=== PATIENT | male | born 1945 | race Caucasian/White ===

== ENCOUNTER 2020-10-15 05:49 | Day surgery (SDC) | payer MEDICARE, OTHER ==
[2020-10-08 16:08] LABS: BASOPHILS # (AUTO) 0.1 X10'3 (0-0.2); BASOPHILS % (AUTO) 1.4 % (0-1); EOSINOPHILS # (AUTO) 0.2 X10'3 (0-0.9); EOSINOPHILS % (AUTO) 3.1 % (0-6); LYMPHOCYTES # (AUTO) 2.4 X10'3 (1.1-4.8); LYMPHOCYTES % (AUTO) 33.7 % (21-51); MEAN CORPUSCULAR HEMOGLOBIN 30.1 PG (27.0-31.0); MEAN CORPUSCULAR HGB CONC 33.5 g/dL (33.0-36.5); MEAN CORPUSCULAR VOLUME 89.9 FL (78-98); MEAN PLATELET VOLUME 9.5 FL (7.4-10.4); MONOCYTES # (AUTO) 0.7 X10'3 (0-0.9); MONOCYTES % (AUTO) 9.9 % (2-12); NEUTROPHILS # (AUTO) 3.7 X10'3 (1.8-7.7); NEUTROPHILS % (AUTO) 51.9 % (42-75); PRE OP HEMATOCRIT 47.9 % (42.0-52.0); PRE OP PLATELET COUNT 296 X10'3 (140-440); RED BLOOD COUNT 5.33 X10'6 (4.70-6.10); RED CELL DISTRIBUTION WIDTH 15.7 % (11.5-14.5)
[2020-10-08 16:16] LABS: PRE OP INR 1.1 INR; PRE OP PROTIME 10.9 SECONDS (9.0-12.0)
[2020-10-08 16:18] LABS: ALBUMIN 4.1 G/DL (3.4-5.0); ALBUMIN/GLOBULIN RATIO 1.4 (1.1-1.5); ALKALINE PHOSPHATASE 98 IU/L (46-116); BLOOD UREA NITROGEN 19 MG/DL (7-18); BUN/CREATININE RATIO 20.9 (5.4-32.0); CALCIUM 8.6 MG/DL (8.5-10.1); CHLORIDE 107 MMOL/L (99-107); CREATININE 0.91 MG/DL (0.60-1.10); PRE OP ALT 37 U/L (30-65); PRE OP ANION GAP 11 (8-16); PRE OP AST 22 U/L (10-37); PRE OP BILIRUB, TOTAL 0.4 MG/DL (0.0-1.0); PRE OP GLUCOSE 128 MG/DL (70-104); PRE OP SODIUM 142 MMOL/L (135-145); TOTAL CARBON DIOXIDE 24.2 MMOL/L (24-32); TOTAL PROTEIN 7.1 G/DL (6.4-8.2); eGFR 82 ML/MIN
[2020-10-08 16:22] LABS: PRE OP POTASSIUM 3.3 MMOL/L (3.4-5.1)
[~2020-10-15] VITALS: Ht 170.2 cm; Wt 72.7 kg
[2020-10-15] VITALS (8 sets, daily range): BP systolic 139–158; BP diastolic 77–90
[~2020-10-15 05:49] MED LIST: AMLO2.5T2 PO; ASCO500C17 PO; ATOR-2 PO; BIOT5000 PO; CHLO25TA10 PO; CYAN250010 PO; DICL50TA8 PO; GABA600T13 PO; HYDR-3973 PO; MAGN400C PO; METH-797 PO; POTASSIUM PO; ZINC50TA67 PO; diazepam 5mg tablet PO PRN; famotidine 20mg tablet PO ONE; oxymetazoline 15 ML nasal spray NS PRN; ringers solution, lacted 1,000 ML IV SCH
[2020-10-15] MEDS ORDERED: ceFAZolin 1000mg inj ONE (06:47)
[2020-10-15] MEDS ORDERED: cocaine 4% topical solution 4ml bottle ONE (06:47)
[2020-10-15] MEDS ORDERED: mupirocin 2% ointment 22GM ONE (06:47)
[2020-10-15] MEDS ORDERED: LIDOcaine 1% W/epiNEPHrine 1:100,000 20ml vial ONE (06:47)
[2020-10-15] MEDS ORDERED: oxymetazoline 15 ML nasal spray NS ONE (06:48)
[2020-10-15 07:11] LABS: ISTAT CREATININE 1.1 mg/dL (0.8-1.3); ISTAT HGB 17.3 g/dl (14.0-18.0); ISTAT IONIZED CALCIUM 1.21 mmol/L (1.03-1.32); ISTAT K 4.2 mmol/L (3.5-5.1); POC BUN/CREATININE RATIO 19.1 (5.4-32.0)
[2020-10-15] MEDS ORDERED: hydrALAZINE 20mg/ml inj. IV ONE (08:05)
[2020-10-15] MEDS ORDERED: sevoflurane 250ml liquid IH ONE (08:05)
[2020-10-15] MEDS ORDERED: fentaNYL/PF 50MCG/1 ML 2ML syringe ONE (08:06)
[2020-10-15] MEDS ORDERED: LIDOcaine 2% (20mg/ml) 5ml vial ONE (08:06)
[2020-10-15] MEDS ORDERED: ondansetron/PF 4mg/2ml inj ONE (08:06)
[2020-10-15] MEDS ORDERED: midazolam 1 mg/ML 2ml injection ONE (08:06)
[2020-10-15] MEDS ORDERED: propofol inj 20 ML IV ONE (08:07)
[2020-10-15] MEDS ORDERED: dexamethasone sod phosphate 4mg/ml inj. ONE (08:07)
[2020-10-15] MEDS ORDERED: ePHEDrine 50MG/ML INJ. ONE (08:37)
[2020-10-15] MEDS ORDERED: ondansetron/PF 4mg/2ml inj IV PRN (08:45)
[2020-10-15] MEDS ORDERED: fentaNYL/PF 50MCG/1 ML 2ML syringe IV PRN ×2 (08:45)
[2020-10-15] MEDS ORDERED: morphine 4 MG/ML inj SYRINge IV PRN (08:45)
[2020-10-15] MEDS ORDERED: ringers solution, lacted 1,000 ML IV SCH (08:45)
[2020-10-15] MEDS ORDERED: enalaprilat dihydrate 2.5mg/2ml vial IV PRN (08:45)
[2020-10-15] MEDS ORDERED: hydrALAZINE 20mg/ml inj. IV PRN (08:45)
[2020-10-15] MEDS ORDERED: morphine 2 MG/ML inj. syringe IV PRN (08:45)
[2020-10-15] MEDS ORDERED: salt irrigation nasal spray 45 ML SPRAY NS PRN (10:10)
[2020-10-15] MEDS ORDERED: HYDROcodone/acetaminophen 10/325mg tab PO ONE (10:15)
== END 2020-10-15 10:45 | disposition home or self-care (01) ==
LOC: PAS 05:49
PROVIDERS: ATTEND Otolaryngology
DX: J34.2 Deviated nasal septum (principal); M95.0 Acquired deformity of nose; J34.3 Hypertrophy of nasal turbinates; J34.89 Other specified disorders of nose and nasal sinuses; F17.210 Nicotine dependence, cigarettes, uncomplicated; I10 Essential (primary) hypertension; Z79.899 Other long term (current) drug therapy; Z79.01 Long term (current) use of anticoagulants; Z20.822 Contact with and (suspected) exposure to COVID-19
CPT/HCPCS: 30140; 30400; 30520; 36415; 80047; 80053; 85025; 85576; 85610; 85730; 93005; A6402; C9250; J0360; J0690; J1100; J2001; J2250; J2405; J2704; J3010; J7120; U0003; U0005; Z7506; Z7508; Z7512; A4618; A7000